=== PATIENT | male | born 1990 | race Two or more races ===

== ENCOUNTER 2017-02-20 13:15 | Emergency (ER) | payer MEDICAID ==
[~2017-02-20] VITALS: Ht 177.8 cm; Wt 77.1 kg
[2017-02-20] MEDS: Famotidine 20 MG/ 2ML VIAL IVP ONE (14:41)
[2017-02-20] MEDS: Metoclopramide 10mg/2ml Inj IVP ONE (14:42)
[2017-02-20] MEDS: Morphine Sulfate 2mg/ml Inj IVP ONE (14:43)
[2017-02-20 15:02] LABS: BASOPHILS % (AUTO) 0.9 % (0.0-2.0); EOSINOPHILS % (AUTO) 0.2 % (0.0-3.0); LYMPHOCYTES % (AUTO) 12.6 % (20.0-45.0); MEAN CORPUSCULAR HEMOGLOBIN 27.8 PG (27.0-31.0); MEAN CORPUSCULAR HGB CONC 33.1 G/DL (32.0-36.0); MEAN CORPUSCULAR VOLUME 84 FL (80-99); MEAN PLATELET VOLUME 8.9 FL (6.5-10.1); MONOCYTES % (AUTO) 5.1 % (1.0-10.0); NEUTROPHILS % (AUTO) 81.3 % (45.0-75.0); PLATELET COUNT 343 K/UL (150-450); RED BLOOD COUNT 5.78 M/UL (4.70-6.10); RED CELL DISTRIBUTION WIDTH 11.2 % (11.6-14.8); WHITE BLOOD COUNT 15.9 K/UL (4.8-10.8)
[2017-02-20 15:23] VITALS: BP 129/79
[2017-02-20 15:23] LABS: ALANINE AMINOTRANSFERASE 22 U/L (3-41); ALBUMIN/GLOBULIN RATIO 1.1 (1.0-2.7); ANION GAP 18 (5-15); ASPARTATE AMINO TRANSFERASE 20 U/L (5-40); CALCIUM 9.9 mg/dL (8.6-10.2); CARBON DIOXIDE 24 mEQ/L (20-30); CHLORIDE 97 mEQ/L (98-107); CREATININE 1.3 mg/dL (0.7-1.2); GLOMERULAR FILTRATION RATE > 60 mL/min (>60); HEMOLYSIS 15; LIPASE 18 U/L (< 60); POTASSIUM 4.3 mEQ/L (3.4-4.9); SODIUM 139 mEQ/L (135-145); TOTAL PROTEIN 8.9 g/dL (6.6-8.7)
--- NOTE | 2017-02-20 15:51 | Emergency Room Report ---
History of Present Illness General Chief Complaint: Abdominal Pain Source: Patient Present Illness HPI 27YOM with both coughing and vomiting since yesterday. Patient unclear what started first - but states multiple episodes of dry cough, then stomach pain with vomiting/dry heaving then noticed "blood in vomit." Assoc with chills. Denies fever. Denies urinary complaints. Denies sick contacts, previous abd/ pelvic surgery. Allergies: Coded Allergies: No Known Allergies (Unverified , 02/20/17) Patient History Past Medical History: none Past Surgical History: none Pertinent Family History: none Social History: Denies: alcohol use, drug use, smoking Nursing Documentation-PMH Hx Cardiac Problems: No Hx Hypertension: No Hx Pacemaker: No Hx Asthma: No Hx COPD: No Hx Diabetes: No Hx Cancer: No Hx Gastrointestinal Problems: No Hx Dialysis: No History Of Psychiatric Problem: No Hx Neurological Problems: No Hx Cerebrovascular Accident: No Hx Seizures: No Physical Exam Vital Signs Date Time Temp Pulse Resp B/P Pulse Ox O2 Delivery O2 Flow Rate FiO2 02/20/17 13:47 99.3 98 16 130/80 99 Room Air Sp02 EP Interpretation: reviewed, normal General Appearance: normal inspection, well appearing, no apparent distress, alert, GCS 15, non-toxic Head: normocephalic, atraumatic Eyes: bilateral eye EOMI, bilateral eye PERRL ENT: normal ENT inspection, hearing grossly normal, normal voice Neck: normal inspection, full range of motion, supple, no bony tend Respiratory: normal inspection, lungs clear, normal breath sounds, no respiratory distress, no retraction, no wheezing Cardiovascular #1: regular rate, rhythm, no edema Gastrointestinal: normal inspection, normal bowel sounds, non tender, soft, no guarding, no hernia Genitourinary: no CVA tenderness Musculoskeletal: normal inspection, back normal, normal range of motion, Eugene' s Sign negative Neurologic: normal inspection, alert, oriented x3, responsive, chute builder III-XII nml as tested, motor strength/tone normal, speech normal Psychiatric: normal inspection, judgement/insight normal, mood/affect normal Skin: normal inspection, normal color, no rash Lymphatic: normal inspection Medical Decision Making Diagnostic Impression: Primary Impression: Abdominal pain Qualified Codes: R10.84 - Generalized abdominal pain Additional Impression: Gastroenteritis ER Course Labs: Leuks 16K. Mild RUDDY CTAP: enteritis. No appy or acute faiza Abx given empirically for leuks d/t delay in CT and result Patient feels much better. Tolerating PO Will Rx with BRAT diet, PEPCID, Zofran PRN DC home with PMD followup Rhythm Strip Diag. Results EP Interpretation: yes Rate: 82 Rhythm: NSR, no PVC's, no ectopy Last Vital Signs Date Time Temp Pulse Resp B/P Pulse Ox O2 Delivery O2 Flow Rate FiO2 02/20/17 15:15 99.4 02/20/17 13:47 98 16 130/80 99 Room Air Status: improved Disposition: HOME, SELF-CARE Referrals: NOT CHOSEN IPA/,REFERRING (PCP) RAISSA GREER M.D. Feb 20, 2017 15:50
[2017-02-20] MEDS ORDERED: cefOXitin 1gm Inj ONE (16:09)
[2017-02-20] MEDS: cefOXitin Sod 1 GM in D5W 55 ML IVPB STA (16:12)
[2017-02-20] MEDS: LR 1000ml 1,000 ML IV SCH (16:12)
--- NOTE | 2017-02-20 16:22 | Diagnostic Imaging Report ---
Indication: Abdominal pain Technique: Continuous helical transaxial imaging of the abdomen and pelvis was obtained from the lung bases to the pubic symphysis during intravenous contrast administration. Coronal 2-D reformats were also obtained. Study obtained in a Siemens sensation [address] Total Dose length Product (DLP): [address] Dose Index Volume (CTDIvol): 17 mGy Comparison: None Findings: The lung bases are clear. There is a hypoattenuated focus in the right lobe of the liver near the dome (seen on image 12, series 2). The liver is low in attenuation consistent with fatty infiltration. Gallbladder is grossly unremarkable. The spleen is unremarkable. Kidneys, pancreas, adrenal glands appear unremarkable. Bladder is mostly nondistended. The appendix is partially seen and appears normal as such. There is no free fluid or free air. Fluid-filled loops of small bowel are noted. Consider enteritis. Impression: Query enteritis given nondistended fluid-filled loops of small bowel. Mild fatty liver 8mm hypodensity in the liver nonspecific. This is probably cystic The CT scanner at [facility] is accredited by the [employer] and the scans are performed using protocols designed to limit radiation exposure to as low as reasonably achievable to attain images of sufficient resolution adequate for diagnostic evaluation.
[2017-02-20] MEDS ORDERED: ZOFRAN ODT4 MG ORAL (16:29)
[2017-02-20] MEDS ORDERED: PEPCID20 MG ORAL (16:29)
[2017-02-20 16:57] VITALS: BP 130/80
== END 2017-02-20 16:58 | disposition home or self-care (01) ==
LOC: EMR 14:09 → EDBEDREQ 15:46 → CANBEDREQ 16:27 → EMR 16:58
DX: K52.9 Noninfective gastroenteritis and colitis, unspecified (principal)
CPT/HCPCS: 36415; 74177; 80053; 83690; 85025; 96374; 96375; J2405; J2765